=== PATIENT | female | born 1935 | race Two or more races ===

== ENCOUNTER 2017-07-14 09:05 | Outpatient (CLI) | payer OTHER | END 2017-07-14 09:07 | disposition home or self-care (01) | LOC: NUCLEAR 09:05 | DX: I87.2 Venous insufficiency (chronic) (peripheral) (principal) ==

== ENCOUNTER 2018-05-31 08:32 | Outpatient (CLI) | payer OTHER | END 2018-05-31 08:50 | disposition home or self-care (01) | LOC: RAD 501 08:32 | DX: J20.0 Acute bronchitis due to Mycoplasma pneumoniae (principal); J45.991 Cough variant asthma ==

== ENCOUNTER → 2020-05-30 | Outpatient (CLI) | payer OTHER | END | disposition home or self-care (01) | LOC: NUCLEAR 12:00 | PROVIDERS: ATTEND Family Medicine | DX: M81.0 Age-related osteoporosis without current pathological fracture (principal) ==

== ENCOUNTER 2020-10-09 12:55 | Outpatient (CLI) | payer OTHER | END 2020-10-09 13:05 | disposition home or self-care (01) | LOC: RAD 12:55 | PROVIDERS: ATTEND Family Medicine | DX: R05 Cough (principal) ==

== ENCOUNTER 2021-10-17 08:00 | Outpatient (CLI) | payer OTHER | END 2021-10-17 09:15 | disposition home or self-care (01) | LOC: ASH CLINIC 08:00 | PROVIDERS: ATTEND Urology | DX: U07.1 COVID-19 (principal) ==

== ENCOUNTER 2023-07-11 16:01 | Emergency (ER) | payer OTHER ==
[~2023-07-11] VITALS: Ht 157.5 cm; Wt 72.6 kg
[2023-07-11] MEDS ORDERED: TOPROL XL50 M1 (16:50)
[2023-07-11] MEDS ORDERED: LOSARTAN POTAS100 MG PO (16:50)
[2023-07-11] MEDS ORDERED: TERAZOSIN HCL5 MG (16:51)
[2023-07-11] MEDS ORDERED: TERAZOSIN HCL 5 MG CAPSULE PO ONE (19:00)
[2023-07-11] MEDS ORDERED: FAMOTIDINE/PF 20 MG/2 ML VIAL IV ONE (19:00)
[2023-07-11] MEDS ORDERED: hydrOXYzine PAMOATE 25 MG CAPSULE PO ONE (19:00)
== END 2023-07-11 20:34 ==
LOC: ER 16:02
DX: I10 Essential (primary) hypertension (principal); Z91.013 Allergy to seafood
CPT/HCPCS: 36415; 96365; 99282; J3490

== ENCOUNTER 2024-08-11 11:44 | Emergency (ER) | payer OTHER ==
[~2024-08-11] VITALS: Ht 160 cm; Wt 81.6 kg
[~2024-08-11 11:44] MED LIST: LOSARTAN POTAS100 MG PO; TERAZOSIN HCL5 MG; TOPROL XL50 M1
[2024-08-11] MEDS ORDERED: ACETAMINOPHEN 500 MG GEL..CAP PO ONE ×2 (12:51→13:00)
== END 2024-08-11 16:30 | disposition home or self-care (01) ==
LOC: ER 11:44
DX: M54.50 Low back pain, unspecified (principal); M51.369 Other intervertebral disc degeneration, lumbar region without mention of lumbar back pain or lower extremity pain; I10 Essential (primary) hypertension; Z91.013 Allergy to seafood